=== PATIENT | female | born 1995 | race Caucasian/White ===

== ENCOUNTER 2016-06-13 12:58 | Emergency (ER) | payer OTHER ==
[~2016-06-13] VITALS: Ht 175.3 cm; Wt 122.0 kg
[2016-06-13 13:03] VITALS: Ht 175.3 cm; Wt 122.0 kg
[2016-06-13] MEDS ORDERED: IBUP-1542 PO (13:46)
[2016-06-13] MEDS ORDERED: CETI10CA PO (13:47)
[2016-06-13] MEDS ORDERED: BENZ100C70 PO (13:47)
[2016-06-13] MEDS ORDERED: AZIT250T94 PO (13:47)
--- NOTE | 2016-06-13 13:53 | ERD ---
ER Documentation Chief Complaint Date/Time DATE: 06/13/16 TIME: 13:48 Chief Complaint cough/congestion, fever x 3 days HPI Patient is a 21-year-old female who presents to the emergency department with cough and nasal congestion 3 days. Patient states that her cough is dry in nature. Patient that she has shortness of breath due to coughing. Patient denies any chest tightness or chest pain. Patient denies any history of asthma. Patient states she has some nasal congestion. Patient also reports ear pain. Patient denies any throat pain, abdominal pain, nausea, vomiting. Patient does report denies body aches. She states that she had a temperature 101 Fahrenheit last night. Patient's been taking NyQuil and Advil for her symptoms. Patient last took Advil 10 AM today. Patient denies flu vaccination. No recent travel. No sick contacts. ROS All systems reviewed and are negative except as per history of present illness. Medications Home Meds Active Scripts Cetirizine Hcl* (Zyrtec*) 10 Mg Capsule, 10 MG PO DAILY, #20 TAB.CHEW Prov:LAILA MCNAIR PA-C 06/13/16 Benzonatate* (Tessalon Perle*) 100 Mg Capsule, 100 MG PO Q8H Y for COUGH, #30 CAP Prov:LAILA MCNAIR PA-C 06/13/16 Azithromycin* (Zithromax*) 250 Mg Tablet, 250 MG PO .ZPACK DIRECTED, #6 TAB TAKE 500 MG (2 TABS) THE FIRST DAY THEN 250 MG (1 TAB) DAYS 2-5 Prov:LAILA MCNAIR-Pavel 06/13/16 Ibuprofen* (Motrin*) 600 Mg Tab, 600 MG PO Q6, #30 TAB Prov:LAILA MCNAIR PA-C 06/13/16 Allergies Allergies: Coded Allergies: No Known Allergy (Unverified , 06/13/16) FmHx Family History: No diabetes Physical Exam Vitals Vital Signs Date Time Temp Pulse Resp B/P Pulse Ox O2 Delivery O2 Flow Rate FiO2 06/13/16 13:03 99.7 94 18 132/82 97 Physical Exam GENERAL: Well-developed, well-nourished female. Appears in no acute distress. Speaking in full sentences HEAD: Normocephalic, atraumatic. No deformities or ecchymosis. EYE: Pupils equal, round, and reactive to light. EOMs intact. No conjunctival erythema. No eye discharge. ENT: External ear without any masses or tenderness. Auditory canals clear bilaterally. TM visualized bilaterally, non-erythematous, non-bulging. Nasal mucosa pink with no discharge. Oropharynx is pink without any tonsillar erythema or exudates. No uvula deviation. No kissing tonsils. NECK: Supple. No meningismus. Normal ROM of the neck. LUNG: Clear to auscultation bilaterally. No rhonchi, wheezing, rales or coarse breath sounds. HEART: Regular rate and rhythm. No murmurs, rubs or gallops. BACK: No midline tenderness. EXTREMITIES: Equal pulses bilaterally. No peripheral clubbing, cyanosis or edema. No unilateral leg swelling. NEUROLOGIC: Alert and oriented to person, place and time. Moving all four extremities. 5/5 strength in all extremities. Normal speech. Steady gait. SKIN: Normal color. Warm and dry. No rashes or lesions. Procedures/MDM MEDICAL DECISION MAKING: This is a 21-year-old female who presents with a cough, nasal congestion, and intermittent fevers. Vital signs were reviewed. Patient was afebrile. Patient was not hypoxic. ENT exam was normal. Lung exam is normal. Given these findings, the patient's presentation is most consistent with viral URI. I have a much lower clinical concern for bacterial infections including pneumonia, meningitis, sinusitis, otitis externa, acute otitis media, strep pharyngitis, epiglottitis or peritonsillar abscess. PRESCRIPTIONS: Ibuprofen, Zyrtec, Tessalon Perles, Z-Kalin. She reported history of bronchitis and is requesting antibiotics at this time. At this time, I will give the patient a prescription for Z-Kalin given her request , however patient was advised to only fill this medication after 06-17-16 if her symptoms persisted. Prescription was dated to be only filled on 06-17-16. DISCHARGE: At this time, patient is stable for discharge and outpatient management. Supportive therapies such as OTC throat lozenges, salt water gurgles, popsicles and jello discussed. I have instructed the patient to follow-up with his/her primary care physician in 1-2 days. I have instructed the patient to promptly return to the ER for any new or worsening symptoms including increased pain, swelling, fever, nausea, vomiting, weakness or difficulty breathing. The patient and/or family expressed understanding of and agreement with this plan. All questions were answered. Home care instructions were provided. Departure Diagnosis: Primary Impression: Viral URI Condition: Stable Patient Instructions: Uri, Viral, No Abx (Adult) Referrals: [facility] YOU HAVE RECEIVED A MEDICAL SCREENING EXAM AND THE RESULTS INDICATE THAT YOU DO NOT HAVE A CONDITION THAT REQUIRES URGENT TREATMENT IN THE EMERGENCY DEPARTMENT. FURTHER EVALUATION AND TREATMENT OF YOUR CONDITION CAN WAIT UNTIL YOU ARE SEEN IN YOUR DOCTORS OFFICE WITHIN THE NEXT 1-2 DAYS. IT IS YOUR RESPONSIBILITY TO MAKE AN APPOINTMENT FOR FOLOW-UP CARE. IF YOU HAVE A PRIMARY DOCTOR --you should call your primary doctor and schedule an appointment IF YOU DO NOT HAVE A PRIMARY DOCTOR YOU CAN CALL OUR PHYSICIAN REFERRAL HOTLINE AT IF YOU CAN NOT AFFORD TO SEE A PHYSICIAN YOU CAN CHOSE FROM THE FOLLOWING [facility] [address] [facility] [address] [facility] [facility] [address] [facility] [address] [facility] [address] [facility] [facility]. [address] [facility] [facility] YOU HAVE RECEIVED A MEDICAL SCREENING EXAM AND THE RESULTS INDICATE THAT YOU DO NOT HAVE A CONDITION THAT REQUIRES URGENT TREATMENT IN THE EMERGENCY DEPARTMENT. FURTHER EVALUATION AND TREATMENT OF YOUR CONDITION CAN WAIT UNTIL YOU ARE SEEN IN YOUR DOCTORS OFFICE WITHIN THE NEXT 1-2 DAYS. IT IS YOUR RESPONSIBILITY TO MAKE AN APPOINTMENT FOR FOLOW-UP CARE. IF YOU HAVE A PRIMARY DOCTOR --you should call your primary doctor and schedule and appointment IF YOU DO NOT HAVE A PRIMARY DOCTOR YOU CAN CALL OUR PHYSICIAN REFERRAL HOTLINE AT . IF YOU CAN NOT AFFORD TO SEE A PHYSICIAN YOU CAN CHOSE FROM THE FOLLOWING [facility] INSTITUTIONS: [facility] [address] [place], [place] [id number] [place] [address] [address] [place] [address] [facility] [address] [place] [address] Additional Instructions: Call your primary care doctor TOMORROW for an appointment during the next 1-2 days.See the doctor sooner or return here if your condition worsens before your appointment time. LAILA MCNAIR PA-C Jun 13, 2016 13:53
== END 2016-06-13 14:11 | disposition home or self-care (01) ==
LOC: FTE 12:58
DX: J06.9 Acute upper respiratory infection, unspecified (principal)
CPT/HCPCS: 99284

== ENCOUNTER 2016-08-01 08:52 | Emergency (ER) | payer OTHER ==
[~2016-08-01] VITALS: Ht 172.7 cm; Wt 124.5 kg
[~2016-08-01 08:52] MED LIST: AZIT250T94 PO; BENZ100C70 PO; CETI10CA PO; IBUP-1542 PO
[2016-08-01 09:01] VITALS: Ht 172.7 cm; Wt 124.5 kg
[2016-08-01] MEDS ORDERED: KETOROLAC 30 MG INJ IM STA (09:58)
[2016-08-01] MEDS ORDERED: HYDROCODONE/APAP (5/325) TAB PO ONE (10:00)
--- NOTE | 2016-08-01 10:34 | RADRPT ---
PROCEDURE: XR right ankle and XR left ankle CLINICAL INDICATION: Bilateral ankle pain TECHNIQUE: 3 views of the right ankle and left ankle were performed. COMPARISON: None. FINDINGS: Right ankle: There is a small age indeterminate bone fragment at the tip of the distal fibula. Alignment is normal. Joint spaces are preserved. There is diffuse soft tissue swelling. Left ankle: There is no acute fracture. Alignment is normal. Joint spaces are preserved. There is diffuse soft tissue swelling. IMPRESSION: 1. Small age indeterminate bone fragment at the tip of the distal fibula on the right. 2. Diffuse soft tissue swelling of both ankles. RPTAT: UU .Michael Emanuel MD, MD Date Time Electronically viewed and signed by .Michael Emanuel MD, on 08/01/2016 10:34 .K/
--- NOTE | 2016-08-01 10:50 | ERD ---
ER Documentation Chief Complaint Date/Time DATE: 08/01/16 TIME: 10:43 Chief Complaint BILAT ANKLE SPRAIN HPI This is a 21-year-old female presenting to emergency department for bilateral ankle pain after fall 3 days ago. Patient states she tripped walking down the stairs and landed with both ankles twisted. Patient states left ankle hurts worse than the right. Patient rates pain 8/10 and has been getting worse. Patient has not been taking any medication at home. Patient has been using ice and rest for comfort. No numbness, tingling or loss of sensation. ROS All systems reviewed and are negative except as per history of present illness. Medications Home Meds Active Scripts Ibuprofen* (Motrin*) 600 Mg Tab, 600 MG PO Q6, #20 TAB Prov:VANE SALGADO NP 08/01/16 Cetirizine Hcl* (Zyrtec*) 10 Mg Capsule, 10 MG PO DAILY, #20 TAB.CHEW Prov:LAILA MCNAIR-C 06/13/16 Benzonatate* (Tessalon Perle*) 100 Mg Capsule, 100 MG PO Q8H Y for COUGH, #30 CAP Prov:LAILA MCNAIR-C 06/13/16 Azithromycin* (Zithromax*) 250 Mg Tablet, 250 MG PO .ZPACK DIRECTED, #6 TAB TAKE 500 MG (2 TABS) THE FIRST DAY THEN 250 MG (1 TAB) DAYS 2-5 Prov:LAILA MCNAIR-C 06/13/16 Ibuprofen* (Motrin*) 600 Mg Tab, 600 MG PO Q6, #30 TAB Prov:LAILA MCNAIR-C 06/13/16 Allergies Allergies: Coded Allergies: No Known Allergy (Unverified , 08/01/16) PMhx/Soc Medical and Surgical Hx: pt denies Medical Hx, pt denies Surgical Hx History of Surgery: No Anesthesia Reaction: No Hx Neurological Disorder: No Hx Respiratory Disorders: No Hx Cardiac Disorders: No Hx Psychiatric Problems: No Hx Miscellaneous Medical Probl: No Hx Alcohol Use: No Hx Substance Use: No Hx Tobacco Use: No Smoking Status: Never smoker Physical Exam Vitals Vital Signs Date Time Temp Pulse Resp B/P Pulse Ox O2 Delivery O2 Flow Rate FiO2 08/01/16 09:01 98.6 76 18 133/80 99 Physical Exam Const: No acute distress, alert Head: Atraumatic Eyes: Normal Conjunctiva ENT: Normal External Ears, Nose and Mouth. Neck: Full range of motion..~ No meningismus. Resp: Clear to auscultation bilaterally Cardio: Regular rate and rhythm, no murmurs Abd: Soft, non tender, non distended. Normal bowel sounds Skin: No petechiae or rashes Back: No midline or flank tenderness Ext: 1+ edema to bilateral ankles and feet. Pedal pulses 2+ bilateral. Tenderness over lateral malleolus to left ankle. Neur: Awake and alert Psych: Normal Mood and Affect Results 24 hrs Current Medications Medications (Trade) Dose Ordered Sig/Pippa Route PRN Reason Start Time Stop Time Status Last Admin Dose Admin Ketorolac Tromethamine (Toradol) 30 mg ONCE STAT IM 08/01/16 09:58 08/01/16 10:00 DC 08/01/16 10:11 Acetaminophen/ Hydrocodone Bitart ([place] (5/325)) 1 tab ONCE ONCE PO 08/01/16 10:00 08/01/16 10:01 DC 08/01/16 10:11 Procedures/MDM Patient: BRENTON REYNOSO : 1995 Age: 21 Sex: F MR #: [id number] DOS: 08/01/16 0958 Ordering MD: VANE SALGADO NP Location: [facility] Room/Bed: PROCEDURE: XR right ankle and XR left ankle CLINICAL INDICATION: Bilateral ankle pain TECHNIQUE: 3 views of the right ankle and left ankle were performed. COMPARISON: None. FINDINGS: Right ankle: There is a small age indeterminate bone fragment at the tip of the distal fibula. Alignment is normal. Joint spaces are preserved. There is diffuse soft tissue swelling. Left ankle: There is no acute fracture. Alignment is normal. Joint spaces are preserved. There is diffuse soft tissue swelling. IMPRESSION: 1. Small age indeterminate bone fragment at the tip of the distal fibula on the right. 2. Diffuse soft tissue swelling of both ankles. MDM: 21 year old female presents to ER with bilateral ankle pain after fall 3 days ago. Patient having significant pain to bilateral ankles after fall. Patient given Toradol and [place] on the ED. X-ray bilateral knees reviewed by radiologist as small age indeterminate bone fragment at the tip of the distal fibula on the right. Diffuse soft tissue swelling of both ankles. Upon reassessment, patient states pain has improved. Trever wrap applied while in the ED to bilateral ankles. Patient remains neurovascularly intact. Low suspicion for acute dislocation or fracture. Low suspicion for compartment syndrome. Patient likely has ankle sprain or strain. Patient is appropriate for outpatient management and will be given prescription for ibuprofen. Instructed patient to follow-up with primary care provider in the next 2-3 days for reassessment. Return to ED for any high fever, chest pain , difficulty breathing, shortness breath, wheezing, vomiting, diarrhea, abdominal pain or any new or worsening symptoms. Patient verbalizes understanding. All questions answered at discharge. Departure Diagnosis: Primary Impression: Ankle injury Encounter type: initial encounter Laterality: unspecified laterality Qualified Code: S99.919A - Ankle injury, unspecified laterality, initial encounter Condition: Stable VANE SALGADO NP Aug 01, 2016 10:50
[2016-08-01] MEDS ORDERED: IBUP-1542 PO (10:54)
== END 2016-08-01 11:06 | disposition home or self-care (01) ==
LOC: FTE 08:52
DX: S99.912A Unspecified injury of left ankle, initial encounter (principal); X50.9XXA Other and unspecified overexertion or strenuous movements or postures, initial encounter; Y92.9 Unspecified place or not applicable
CPT/HCPCS: 73600; J1885; Z7610; 96372